=== PATIENT | male | born 1960 | race Caucasian/White ===

== ENCOUNTER → 2017-11-04 | Outpatient (CLI) | payer MEDICARE | END | disposition home or self-care (01) | LOC: SL 20:01 | PROVIDERS: ATTEND Psychiatry & Neurology Neurology | DX: G47.10 Hypersomnia, unspecified (principal); R06.81 Apnea, not elsewhere classified; I10 Essential (primary) hypertension; R06.83 Snoring ==

== ENCOUNTER → 2019-04-20 | Outpatient (CLI) | payer MEDICARE ==
--- NOTE | 2019-04-22 11:05 | CT ---
EXAM: Abdoment/Pelvis w/o Contrast CLINICAL HISTORY: Pain, Abdominal Unspecified COMPARISON STUDY: None TECHNIQUE: Non-oral, non-IV contrast CT images were obtained through the abdomen and pelvis. Coronal reconstructions were acquired. FINDINGS: The visible portion of the chest shows clear lungs. The heart is not enlarged. The aorta is non-dilated. Solid organ evaluation is limited without IV contrast administration. The unenhanced images of the spleen, pancreas, adrenal glands and kidneys demonstrate no visible abnormality. The liver is mildly heterogenous in the superior hepatic surface shows a mild nodularity. The gallbladder is absent. Bowel evaluation is limited without oral contrast administration. There is no bowel obstruction/dilatation. The appendix is visible and negative. There are no mesenteric inflammatory changes. There is a very small amount of free fluid in the abdomen and pelvis. The aorta is not dilated and has mild atherosclerotic calcifications. The branch vessels all demonstrate significant atherosclerotic changes/calcification which can be seen in patients with diabetes. Pelvic structures are negative. There are severe degenerative changes at L5-S1. There is a disc protrusion at L4-5 that measures up to 10 mm. There is stenosis of the bilateral exiting foramina at L4-5 and L5-S1. Remainder the spine shows gfan-vw-eulbremt degenerative change. CONCLUSION: 1. No acute intra-abdominal or pelvic abnormality. 2. Slight irregular and nodular hepatic parenchyma can be seen with cirrhosis, hepatitis, chronic liver diseases of other etiologies. 3. Dense vascular calcifications suggesting diabetes. 4. Severe degenerative changes at L5-S1 and 10 mm disc protrusion at L4-5. This exam was performed according to our departmental dose-optimization program, which includes automated exposure control, adjustment of the mA and/or kV according to patient size and/or use of iterative reconstruction technique. . Electronically signed by: Rod Rosenberg MD 04/22/2019 11:03 AM CDT
== END ==
LOC: CT 13:54
PROVIDERS: ATTEND Urology
DX: R10.9 Unspecified abdominal pain (principal); N41.0 Acute prostatitis; N50.0 Atrophy of testis

== ENCOUNTER → 2019-05-30 | Outpatient (CLI) | payer MEDICARE ==
--- NOTE | 2019-05-31 09:38 | CT ---
EXAM DESCRIPTION: Lumbar Spine (accession [id number]), MYELOGRAM, LUMBAR SPINE (accession [id number]): Computed Tomography. CLINICAL HISTORY: 59 years Male LUMBAR DISK HERNIATION arthritis and back. Right leg pain. Patient with history renal failure. Scheduled to have dialysis following the CT scan. COMPARISON: CT scan of the abdomen and pelvis without contrast 04/20/2019. TECHNIQUE: The procedure was explained to the patient with risks and benefits. The patient gave verbal and written consent. Patient prone on standard fluoroscopic table. Block Cableman image recorded neutral position. L2-L3 interspinous fossa localized by fluoroscopy. Overlying skin was marked and prepped with sterile solution and sterile draping applied. Subcutaneous and deep 1% xylocaine injection local. 5 cm, 22-gauge spinal needle introduced into the interspinous fossa under fluoroscopic guidance. Clear CSF fluid appeared in the hub of the needle, confirming placement in the subarachnoid space. 13 mL of intrathecal contrast was injected under fluoroscopic visualization. Observed contrast material in the lumbar subarachnoid space. Minimal contrast material in the epidural space. AP and bilateral anterior oblique images obtained with patient 10 degrees tilt, head elevated. Total images 4. Total fluoroscopy time was 3.3 minutes. Dose: 232.82 mGy. DAP 52.226 Gy-cm2. Spiral, axial 2.5 x 2.5 mm scans through the lumbar spine after lumbar myelogram using 13 cc of intrathecal nonionic contrast. Coronal and sagittal 2.0 mm Reconstructions. No complications. No adverse contrast reactions. Total Exam DLP: 596.55 mGy-cm. This exam was performed according to our departmental CT dose-optimization program which includes automated exposure control, adjustment of the mA and/or kV according to patient size and/or use of iterative reconstruction technique; to reduce radiation dose to as low as reasonably achievable (ALARA). FINDINGS: Contrast seen in the subarachnoid space in the epidural space on the mammogram. Mass effect is seen on the contrast material at the L4-5 and L5-S1 disc space levels corresponding to the disc impression. Minimal impression on the ventral sac by disc at the L2-3 level. L5-S1: The mid disc space is identified on axial series 2, image 84. Rudimentary S1-S2 disc. 2 mm grade 1 retrolisthesis L5-S1. Posterior disc bulge with osteophytes 6 mm encroaching on the thecal sac. Circumferential endplate spurs and moderate disc space loss with gas formation in the anterior disc space. Bilateral mild hypertrophic facet arthrosis and ligament thickening. AP canal 11 mm. Also bilateral narrowing of the subarticular recesses more left than right. Contrast in the bilateral S1 nerve root sleeves. Right foraminal stenosis and moderate to severe narrowing of the left foramen. L4-L5: Midline and right paracentral disc protrusion 8 mm impressing on the thecal sac. Bilateral hypertrophic facet arthrosis and flavum ligament thickening. AP canal diameter 6.5 mm. The disc is abutting the bilateral descending L5 nerve roots in the subarticular recesses; contrast in the nerve root sleeves. Disc bulge also bilaterally into the foramina which are moderately narrowed more on the left than the right. L3-L4: Trace posterior disc bulge more to the right of midline than the left. Bilateral hypertrophic facet arthrosis and ligament thickening. The AP canal diameter 13 mm. Minimal narrowing of the subarticular recesses. Contrast seen in the bilateral L4 nerve root sleeves, with disc abutting the roots in the subarticular recesses. Small old Schmorl's node inferior L3. Moderate to severe narrowing of the right foramen with mild narrowing of the left foramen. L2-L3: Trace retrolisthesis 1 mm. Old Schmorl's nodes in the endplates. 3 mm disc bulge abutting the thecal sac. Bilateral mild facet arthrosis and ligament thickening. AP canal diameter 13 mm. Mild left foraminal narrowing and moderate right foraminal narrowing. L1-L2: Anterior disc bulge with endplate ridging. Minimal concavity of the endplates. Tiny posterior disc bulge. Minimal posterior ligament thickening. Canal is patent. Bilateral mild foraminal narrowing. T12-L1: Minimal concavities of the endplates. Posterior right paracentral disc protrusion 5.5 mm with superior extrusion and mass effect on the conus which terminates at this level. AP canal diameter 10 mm. Posterior elements unremarkable. Bilateral foramina are patent. No compression type vertebral body fractures. No paraspinal soft tissue mass. IMPRESSION: 1. Normal lumbar myelogram, a minimal amount of contrast entered the epidural space which can be seen on the CT images. CT images also show multiple images of this disease, spondylosis, hypertrophic facet arthrosis and ligament hypertrophy. 2. Minimal retrolisthesis at L5-S1 and posterior disc bulge/protrusion with osteophytes encroaching on the thecal sac and moderate canal narrowing. Right foraminal stenosis: Correlate for right L5 radiculopathy. Severe narrowing of the left foramen. 3. Midline and right paracentral 8 mm disc protrusion at L4-L5 with moderate to severe central canal stenosis. The disc is abutting the bilateral L5 nerve roots in the subarticular recesses. 4. Posterior disc bulge with mild to moderate canal narrowing. Disc is abutting the bilateral L4 nerve roots in the subarticular recesses. Moderate to severe narrowing of the right foramen; correlate for right L3 radiculopathy. 5. Right posterior T12-L1 paracentral disc protrusion with superior extrusion and minimal mass effect on the conus which terminates at this level. Borderline mild central canal stenosis. Electronically signed by: Chaz Flores MD 05/31/2019 9:36 AM CDT
== END ==
LOC: RAD 09:00
PROVIDERS: ATTEND Neurological Surgery
DX: M51.26 Other intervertebral disc displacement, lumbar region (principal); M51.27 Other intervertebral disc displacement, lumbosacral region; M51.25 Other intervertebral disc displacement, thoracolumbar region; M48.062 Spinal stenosis, lumbar region with neurogenic claudication; M47.896 Other spondylosis, lumbar region; M25.78 Osteophyte, vertebrae